=== PATIENT | male | born 1985 | race Caucasian/White ===

== ENCOUNTER 2020-11-29 06:48 | Emergency (ER) | payer OTHER, SELFPAY ==
--- NOTE | ~2020-11-29 | XR_ITS ---
XR chest 2V DATE: 11/29/2020 07:54 INDICATION: Intermittent left-sided chest pain TECHNIQUE: PA and lateral views COMPARISON: None FINDINGS: Normal heart size. No hilar or mediastinal enlargement. No pulmonary infiltrate or consolid ation, pleural effusion or pulmonary vascular congestion or pneumothorax is detected. Included skelet al structures are unremarkable. IMPRESSION: Negative Reviewed, dictated and finalized at location A. DEVELOPER IMPRESSION: Negative
[2020-11-29 06:52] VITALS: BP 131/93; PULSE 93; RESP 20; TEMP 36; O2SAT 100
--- NOTE | 2020-11-29 07:38 | ECG_ITS ---
Measurements Intervals [place] Rate: 90 P: 24 VT: 182 QRS: 26 QRSD: 89 T: 28 QT: 327 QTc: 401 Interpretive Statements SINUS RHYTHM INCOMPLETE RIGHT BUNDLE BRANCH BLOCK BASELINE ARTIFACT- I, III, AVL BORDERLINE ECG Electronically Signed On 11-29-2020 8:13:19 [employer]OUR[employer] TRA[employer] OPERATOR CHIEF by Jhonatan Palomares D.O.
--- NOTE | 2020-11-29 07:40 | ED.ANXIETY ---
HPI - Anxiety General Chief Complaint: Anxiety Stated Complaint: anxiety attack Time Seen by Provider: 11/29/20 07:01 Source: patient and family () Mode of arrival: ambulatory Limitations: no limitations History of Present Illness HPI narrative: This patient is a 35 year old male with history of hypertension who presents for evaluation of emotional distress . His is present with him to assist in history. He states that has been dealing with a lot of stress at work. He is worried about losing his job and he is concerned that he is having difficulty concentrating at work. He states when he starts thinking about talking to his boss, he develops a sense of impending doom . He has been having intermittent episodes of panic attacks over the past 2 weeks and it is worse at night. He has been unable to sleep over the past 2 week. At night, he has racing thoughts, heart pounding and he starts hyperventilating. He has episode of vomiting when he starts to hyperventilate. He has been trying meditation to help with his anxiety. His states at night he will grab and shake the bed. He will also grab her and start screaming. She states he has made statements about wanting to kill himself. He states whenever he is having a bad panic attack he does have thoughts about ending things. He does not have plan to commit suicide. complaint: anxiety Related Data Home Medications Medication Instructions Recorded Confirmed lisinopril 20 mg PO DAILY 11/29/20 11/29/20 Allergies Allergy/AdvReac Type Severity Reaction Status Date / Time Penicillins Allergy Unknown Verified 04/15/15 14:59 Review of Systems Review of Systems: All systems reviewed & are unremarkable except as noted in HPI and below Constitutional: Constitutional: Denies chills and Denies fever(s) Cardiovascular: Cardiovascular: Reports chest pain (with panic attack) and Reports rapid heart rate Respiratory: Respiratory: Reports cough Gastrointestinal: Gastrointestinal: Denies abdominal pain and Reports vomiting Psychiatric: Psychiatric: Reports anxiety, Denies homicidal ideation and Reports suicidal ideation [facility] Past Medical History Medical History (Updated 11/29/20 @ 13:41 by Oneyda Hanna MD) Hypertension Family History Family History (Updated 04/15/15 @ 15:02 by DOCTOR UNKNOWN) Other Family history of alcoholism Social History Social History (Updated 11/29/20 @ 07:51 by Oneyda Hanna MD) Smoking status: Never smoker Substance use type: marijuana Exam Const: General: alert Orientation/consciousness: patient oriented x3 HENMT: Head: normocephalic and atraumatic Face and sinus: face symmetric Throat: tonsils normal and uvula midline Eyes: EOM: EOMs intact bilaterally Chest: Chest palpation & inspection: normal inspection of the chest Resp: Effort & Inspection: normal respiratory effort and no retractions Auscultation: clear to auscultation bilaterally Cardio: Rate: regular rate Rhythm: regular rhythm Heart sounds: no murmurs GI: GI Palp: Yes Soft to palpation, No Tenderness to palpation present (GI) and No Guarding due to palpation present (GI) Auscultation: normal bowel sounds Neuro: General: patient oriented x3, moves all extremities and CN's II-XI intact bilaterally Extrem: General: normal to inspection Psych: Thought content: Yes other (intermittently starts crying and hyperventilating) Course Reevaluation(s) Reevaluation #1: PAtient reports he feels better. He was assessed by [place] worker and she is getting patient set up for counselor and to see psychiatrist. He is felt to be safe for discharge with . He will be discharged with prescription for vistaril. Date: 11/29/20 Time: 13:37 Vital Signs Vital signs: Vital Signs Temperature 96.8 F L 11/29/20 06:52 Pulse Rate 93 11/29/20 06:52 Respiratory Rate 20 11/29/20 06:52 Blood Pressure 131/93 H 11/29/20 06:52
--- NOTE | 2020-11-29 07:41 | PC.NURSE ---
Pt extremely anxious. This RN sat and spoke with pt in depth for approx 30 mins. Pt talking about how he feels like his is missing things at work and he wakes up in a panic and feels impending doom. He states that he feels like he is going to lose his job. He states that he is worried about talking to his boss about some of the things that have been happening at work. Pt will get worked up and will shake when he starts talking about something that makes him anxious. Pt denies SI but states that he finds himself at time driving to work and he will start screaming and crying and speeding. Pt states he is having a hard time controlling his thoughts. in room and states that we will be doing a psych clearance and trying to get him help beyond the ER.
--- NOTE | 2020-11-29 07:46 | PC.NURSE ---
Pt going to X ray at this time.
[2020-11-29] MEDS: ONDANSETRON HCL ODT 4 MG TABLET PO (07:57)
[2020-11-29] MEDS: hydrOXYzine pamoate 25 MG CAPSULE 50 MG PO (07:57)
[2020-11-29 08:21] LABS: Basophils Percent Auto 0.3 % (0.2-1.2); Eosinophils Absolute Auto 0.1 K/mm3 (0-0.3); Eosinophils Percent Auto 1.5 % (0-4.4); Hematocrit 44.5 % (42.0-52.0); Hemoglobin 15.3 g/dL (14.0-18.0); Immature Granulocyte Absolute 0.02 K/mm3 (0.00-0.031); Immature Granulocyte Percent A 0.3 % (0-0.5); Lymphocytes Absolute Auto 2.12 K/mm3 (0.9-3.2); Lymphocytes Percent Auto 31.5 % (18.3-44.2); Mean Corpuscular HGB Conc 34.4 g/dl (32-36); Mean Corpuscular Hemoglobin 28.3 pg (26-34); Mean Corpuscular Volume 82.4 fl (80-100); Mean Platelet Volume 9.9 fl (7.4-10.4); Monocytes Absolute Auto 0.5 K/mm3 (0.1-0.6); Neutrophils Percent Auto 59.4 % (45.5-73.1); Platelet Count Result 317 k/mm3 (150-375); Red Cell Distribution Width 12.3 % (11.5-14.5); White Blood Count 6.7 K/mm3 (4.5-10.0)
[2020-11-29 08:27] LABS: Add Urine Microscopic? YES; Appearance Urine Clear (Clear); Bilirubin Urine Negative (Negative); Blood Urine Negative (Negative); Color Urine Yellow (Yellow); Glucose Urine UA Negative (Negative); Ketones Urine Trace mg/dL (Negative); Leukocyte Esterase Ur Negative LEU/UL (Negative); Mucus Urine Rare /lpf; Nitrate Urine Negative (Negative); Protein Urine 1+ mg/dL (Negative); RBC Urine 0-2 /hpf (0-2); Specific Grav Ur 1.019 (1.001-1.035); Urobilinogen Urine Negative mg/dL (<2.0); WBC Urine 0-3 /hpf
[2020-11-29 08:32] LABS: Ethanol < 10 mg/dL (<10)
[2020-11-29 08:33] LABS: Alanine Aminotransferase 34 U/L (4-50); Albumin Level 4.8 g/dL (3.5-5.1); Alkaline Phosphatase 34 U/L (38-126); Anion Gap 4 mmol/L (8-16); Aspartate Amino Transferase 31 U/L (17-59); Bilirubin,Total 1.3 mg/dL (0.2-1.3); Blood Urea Nitrogen 9 mg/dL (9-20); Calcium 9.5 mg/dL (8.4-10.2); Carbon Dioxide 30 mmol/L (22-30); Chloride 102 mmol/L (98-107); Estimated Glomerular Filt Rate > 60; Glucose 101 mg/dL (75-110); Potassium 4.6 mmol/L (3.4-5.0); Sodium 136 mmol/L (137-145)
[2020-11-29 08:40] LABS: Barbiturate Screen Urine Negative (Negative); Benzodiazepines Screen Urine Negative (Negative)
[2020-11-29 08:46] LABS: Troponin I < 0.012 ng/mL (0.000-0.034)
[2020-11-29 08:52] LABS: Amphetamine Screen Urine Negative (Negative); Cannabinoid Screen Urine Positive (Negative); Cocaine Screen Urine Negative (Negative); Methadone Screen Urine Negative (Negative); Opiate Screen Urine Negative (Negative); Phencyclidine Screen Urine Negative (Negative)
[2020-11-29 09:04] LABS: Thyroid Stimulating Hormone 0.769 uIU/mL (0.465-4.680)
[2020-11-29 09:31] VITALS: BP 121/88; PULSE 86; RESP 18; O2SAT 100
--- NOTE | 2020-11-29 11:04 | PC.NURSE ---
Viky from crisis here to talk to patient
--- NOTE | 2020-11-29 12:29 | PC.NURSE ---
[facility]is still evaluating patient at this time
[2020-11-29 12:38] VITALS: BP 133/92; PULSE 89; RESP 18; O2SAT 99
== END 2020-11-29 13:57 | disposition home or self-care (01) ==
PROVIDERS: Emergency Provider General Practice; PCP Family Medicine
DX: F41.9 Anxiety disorder, unspecified (principal); I10 Essential (primary) hypertension; I45.10 Unspecified right bundle-branch block
CPT/HCPCS: 36415; 71046; 80053; 80307; 81001; 84443; 84484; 85025; 93005; 99284; A9270